=== PATIENT | female | born 1980 | race American Indian/Alaskan Native ===

== ENCOUNTER 2017-05-11 08:31 | Emergency (ER) | payer OTHER ==
[2017-05-11 10:13] LABS: Bilirubin,Urine NEG (Negative); Blood,Urine NEG (Negative); Color,Urine Yellow (Yellow); Mucus,Urine FEW /HPF; Nitrite,Urine NEG (Negative); Protein,Urine <15 mg/dL mg/dL (Negative); Urobilinogen,Urine < 2.0 mg/dL (<2.0)
[2017-05-11] MEDS ORDERED: TYLENOL PO ONE (10:14)
[2017-05-11 10:17] LABS: HCG Qualitative,Urine Negative (Negative)
[2017-05-11 10:43] LABS: Basophils # (Auto) 0.1 K/mm3 (0.0-0.1); Basophils % (Auto) 1.6 % (0.0-1.8); Eosinophils # (Auto) 0.1 K/mm3 (0.0-0.4); Eosinophils % (Auto) 1.8 % (0.0-4.3); Hematocrit 32.5 % (30.3-42.9); Hemoglobin 9.9 gm/dl (10.1-14.3); Lymphocytes # (Auto) 1.7 K/mm3 (1.2-5.4); Lymphocytes % (Auto) 25.6 % (13.4-35.0); Mean Corpuscular HGB Conc 31 % (30-34); Mean Corpuscular Hemoglobin 22 pg (28-32); Mean Corpuscular Volume 70 fl (79-97); Monocytes # (Auto) 0.3 K/mm3 (0.0-0.8); Platelet Count 370 K/mm3 (140-440); Red Blood Count 4.61 M/mm3 (3.65-5.03); Red Cell Distribution Width 19.4 % (13.2-15.2)
[2017-05-11 11:01] LABS: BUN/Creatinine Ratio 28; Blood Urea Nitrogen 14 mg/dL (7-17); Calcium 9.6 mg/dL (8.4-10.2); Hemolysis Index 9
--- NOTE | 2017-05-11 11:41 | Cat Scan Report ---
CT ABDOMEN PELVIS WITHOUT CONTRAST: HISTORY: Lower back pain, evaluate for renal stones. COMPARISON: none. TECHNIQUE: Helical CT in 1.25mm intervals without IV contrast. Sagittal and coronal reconstructions. FINDINGS: Lung bases: Normal. Liver: Normal. Biliary system: Normal. Pancreas: Normal. Spleen: Normal. Kidneys/ureters/bladder: Normal. Adrenal glands: Normal. Aorta: Normal. Intestines: Normal. Appendix: Normal. Pelvic viscera: Unremarkable. An IUD is in position. Ascites: None. Adenopathy: None. Musculoskeletal: Normal. IMPRESSION: Unremarkable CT scan of the abdomen and pelvis without contrast.
--- NOTE | 2017-05-11 12:15 | Emergency Department Report ---
ED Back Pain/Injury HPI - General Chief Complaint: Back Pain/Injury Stated Complaint: BACK PAIN Time Seen by Provider: 05/11/17 09:56 Source: patient, family Limitations: Language Barrier - History of Present Illness Initial Comments: 36-year-old female past medical history anemia, history of lower back pain presents with complaint of one month of persistent achy lower back pain. Patient speaks some Georgian but primarily speaks Irish. Patient's is at bedside and is able to assist with communication. Patient is fully lucid awake alert and oriented 3 does not appear to be in acute distress. Patient denies fevers chills nausea vomiting palpitations chest pain shortness of breath diffuse body aches cough runny nose sore throat earache. Patient denies any vaginal discharge or foul-smelling urine. Last menstrual period 04/30/17. Patient states that she intermittently experiences lower back pain usually worse after work today. 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 Pain is slightly worse with bending. Patient denies any falls or direct trauma to lower back. Patient is ambulatory without assistance denies any saddle paresthesias or paralysis of any extremity. Denies any rash on flank or back. Patient denies any fevers or chills. Patient states she has been taking Duexis (combination of ibuprofen and Pepcid) with some intermittent relief of her lower back pain. Patient does not currently have a primary care doctor. Patient states that she has an IUD in place. MD Complaint: back pain Onset/Timin -: week(s) Similar Symptoms Previously: Yes Place: work Radiation: none Severity: moderate Severity scale (0 -10): 4 Quality: aching Consistency: intermittent Improves With: immobilization Worsens With: movement Context: while lifting, turning/twisting, bending Associated Symptoms: denies other symptoms - Related Data Previous Rx's Medication Instructions Recorded Last Taken Type Cyclobenzaprine [Flexeril] 10 mg PO TID PRN #10 tablet 05/11/17 Unknown Rx Multivitamin/Iron/Folic Acid 1 each PO QDAY #1 bottle 05/11/17 Unknown Rx [Centrum Women Tablet] Nitrofurantoin Monohyd/M-Cryst 100 mg PO BID #14 capsule 05/11/17 Unknown Rx [Macrobid 100 mg Capsule] Allergies Allergy/AdvReac Type Severity Reaction Status Date / Time No Known Allergies Allergy Unverified 05/11/17 08:49 ED Review of Systems ROS: Stated complaint: BACK PAIN Other details as noted in HPI Constitutional: denies: chills, fever Eyes: denies: eye pain, eye discharge, vision change ENT: denies: ear pain, throat pain Respiratory: denies: cough, shortness of breath, wheezing Cardiovascular: denies: chest pain, palpitations Endocrine: no symptoms reported Gastrointestinal: denies: abdominal pain, nausea, diarrhea Genitourinary: denies: urgency, dysuria, discharge Musculoskeletal: back pain. denies: joint swelling, arthralgia Skin: denies: rash, lesions Neurological: denies: headache, weakness, paresthesias Psychiatric: denies: anxiety, depression Hematological/Lymphatic: denies: easy bleeding, easy bruising ED Past Medical Hx - Past Medical History Previous Medical History?: No - Surgical History Past Surgical History?: No - Social History Smoking Status: Never Smoker Substance Use Type: None - Medications Home Medications: Home Medications Medication Instructions Recorded Confirmed Last Taken Type Cyclobenzaprine [Flexeril] 10 mg PO TID PRN #10 tablet 05/11/17 Unknown Rx Multivitamin/Iron/Folic Acid 1 each PO QDAY #1 bottle 05/11/17 Unknown Rx [Centrum Women Tablet] Nitrofurantoin Monohyd/M-Cryst 100 mg PO BID #14 capsule 05/11/17 Unknown Rx [Macrobid 100 mg Capsule] ED Physical Exam - General Limitations: Language Barrier General appearance: alert, in no apparent distress - Head Head exam: Present: atraumatic, normocephalic - Eye Eye exam: Present: normal appearance, PERRL, EOMI - ENT ENT exam: Present: mucous membranes moist - Neck Neck exam: Present: normal inspection - Respiratory Respiratory exam: Present: normal lung sounds bilaterally. Absent: respiratory distress - Cardiovascular Cardiovascular Exam: Present: regular rate, normal rhythm. Absent: systolic murmur, diastolic murmur, rubs, gallop - GI/Abdominal GI/Abdominal exam: Present: soft (abdomen soft nontender nondistended 4 quadrants on clinical exam), normal bowel sounds - Extremities Exam Extremities exam: Present: normal inspection - Back Exam Back exam: Present: normal inspection, full ROM (flexion and extension lateral rotation intact), other (no clinical flank tenderness on percussion) - Neurological Exam Neurological exam: Present: alert, oriented X3, CN II-XII intact, normal gait - Expanded Neurological Exam Expanded Patient oriented to: Present: person, place, time Cranial nerves: EOM's Intact: Normal, Facial Sensation: Normal Cerebellar function: Finger to Nose: Normal, Heel to [place]: Normal, Romberg: Normal Sensory exam: Upper Extremity Light Touch: Normal, Lower Extremity Light Touch: Normal Motor strength exam: RUE: 5, LUE: 5, RLE: 5, LLE: 5 Best Eye Response ([place]): (4) open spontaneously Best Motor Response ([place]): (6) obeys commands Best Verbal Response ([place]): (5) oriented Ancho Total: 15 - Psychiatric Psychiatric exam: Present: normal affect, normal mood - Skin Skin exam: Present: warm, dry, intact, normal color. Absent: rash ED Course Vital Signs 05/11/17 05/11/17 08:42 10:23 Temperature 98.2 F Pulse Rate 79 Respiratory 18 18 Rate Blood Pressure 110/71 O2 Sat by Pulse 100 Oximetry ED Medical Decision Making - Lab Data Result diagrams: 05/11/17 10:26 05/11/17 10:26 - Medical Decision Making A/P: Musculoskeletal Lower back pain, asymptomatic bacteriuria, anemia 1-CBC and BMP unremarkable, creatinine kinase unremarkable. Trace leukocytes on urinalysis. Patient not . We'll treat empirically with Macrobid. Patient states she does hold her urine on a frequent basis at work. Urine culture sent. 2-CT shows no significant abnormalities, IUD in place. 3-patient states she does have history of intermittently heavy periods. Likely iron deficiency anemia. Will start patient on multivitamin and iron supplementation 4- patient can continue taking Duexis PRN, will add short course of Flexeril when necessary Critical care attestation.: If time is entered above; I have spent that time in minutes in the direct care of this critically ill patient, excluding procedure time. ED Disposition Clinical Impression: Asymptomatic bacteriuria Lower back pain Qualifiers: Chronicity: acute Back pain laterality: bilateral Sciatica presence: without sciatica Qualified Code(s): M54.5 - Low back pain Anemia Qualifiers: Anemia type: iron deficiency Iron deficiency anemia type: other iron deficiency Qualified Code(s): D50.8 - Other iron deficiency anemias Disposition: TO HOME OR SELFCARE Is pt being admited?: No Does the pt Need Aspirin: No Condition: Stable Instructions: Iron Deficiency Anemia (ED), Anemia (ED), Iron Rich Diet (ED), Low Back Strain (ED), Back Pain (ED), Urinary Tract Infection in Women (ED) Prescriptions: Cyclobenzaprine [Flexeril] 10 mg PO TID PRN #10 tablet PRN Reason: Muscle Spasm Multivitamin/Iron/Folic Acid [Centrum Women Tablet] 1 each PO QDAY #1 bottle Nitrofurantoin Monohyd/M-Cryst [Macrobid 100 mg Capsule] 100 mg PO BID #14 capsule Referrals: KENDRA DE LA ROSA MD [Primary Care Provider] - 3-5 Days KELECHI TERRELL MD [Staff Physician] - 3-5 Days [facility] [Outside] - 3-5 Days Forms: Accompanied Note, Work/School Release Form(ED) Time of Disposition: 12:18 Print Language: CRISTAL
[2017-05-11 12:42] VITALS: BP 121/64
== END 2017-05-11 12:43 | disposition home or self-care (01) ==
LOC: ED 08:31
DX: M54.5 Low back pain (principal); D50.8 Other iron deficiency anemias; R10.9 Unspecified abdominal pain; R82.71 Bacteriuria; M54.9 Dorsalgia, unspecified
CPT/HCPCS: 36415; 74176; 80048; 81001; 81025; 82550; 85025; 99284